=== PATIENT | male | born 1995 | race African-American/Black ===

== ENCOUNTER 2016-08-07 00:45 | Emergency (ER) | payer SELFPAY ==
[2016-08-07] MEDS ORDERED: TDAP ADULT 0.5 ML INJ (BOOSTRIX) IM ONE ×3 (00:52→01:35)
--- NOTE | 2016-08-07 00:54 | EDPHY ---
H & P Time Seen by Provider: 08/07/16 00:50 HPI/ROS: CCHIEF COMPLAINT: Right knee and right hand pain post interaction with police HISTORY OF PRESENT ILLNESS: 21-year-old male arrives via ambulance after he was allegedly running from the police, needed to be apprehended by the police and is complaining of right hand and right knee pain which he states was I results of his being apprehended by police. Tetanus is out-of-date. He denies: Peripheral paresthesia, weakness, numbness, chest pain, back pain, abdominal pain, nausea, vomiting. REVIEW OF SYSTEMS: A ten point review of systems was performed and is negative with the exception of the items mentioned in the HPI PAST MEDICAL/SURGICAL HISTORY: no relevant medical/surgical history SOCIAL HISTORY: denies alcohol use at time of incident PHYSICAL EXAM 1) GENERAL: Well-developed, well-nourished, alert and oriented. . 2) HEAD: Normocephalic, atraumatic 3) HEENT: Pupils equal, round, reactive to light bilaterally. 4) NECK: No cervical collar is on. Posterior cervical spine is nontender, no stepoff, no effusion. Full range of motion which does not elicit any midline cervical spine pain, no posterior midline tenderness, no step-off. 5) LUNGS: Clear to auscultation bilaterally, no wheezes, no rhonchi, no retractions. 6) HEART: Regular rate and rhythm, 7) ABDOMEN: No guarding, no rebound, no focal tenderness, no peritoneal signs, no signs of trauma, no ecchymosis 8) MUSCULOSKELETAL: Right upper extremity: Tender to palpation right 5th metacarpal with no deformity no angulation no signs of infection. Normal cascading of digit. Brisk capillary refill. Right lower extremity: Abrasion to the right anterior knee with tenderness. Patella midline. Reproducible pain with flexion of the knee. Distally and proximally nontender. Otherwise, Moving all extremities, no focal areas of tenderness, no obvious trauma. 9) BACK:No midline vertebral tenderness. 10) SKIN: No laceration. DIFFERENTIAL DIAGNOSIS: [ In no particular order including but not limited to fracture, sprain, dislocation Constitutional: Initial Vital Signs Temperature (C) 37.0 C 08/07/16 00:53 Heart Rate 91 08/07/16 00:53 Respiratory Rate 18 08/07/16 00:53 Blood Pressure 108/72 08/07/16 00:53 O2 Sat (%) 96 08/07/16 00:53 O2 Delivery Mode Room Air Allergies/Adverse Reactions: No Known Allergies Allergy (Unverified 08/07/16 00:55) Home Medications: Medication Instructions Recorded NK [No Known Home Meds] 08/07/16 MDM/Departure - MDM Imaging Results: Xray of the Right hand and right knee interpreted by myself: no definitive acute osseous abnormality Medications Given: Discontinued Medications Diphtheria/Tetanus/Acell Pertussis (Boostrix) 0.5 ml IM .ONCE ONE Stop: 08/07/16 00:53 Last Admin: 08/07/16 01:38 Dose: 0.5 ml - Depart Disposition: Home, Routine, Self-Care Clinical Impression: Abrasion, right knee, initial encounter Qualifiers: Encounter type: initial encounter Qualified Code(s): S80.211A - Abrasion, right knee, initial encounter Right knee injury Qualifiers: Encounter type: initial encounter Qualified Code(s): S89.91XA - Unspecified injury of right lower leg, initial encounter Injury of right hand Qualifiers: Encounter type: initial encounter Qualified Code(s): S69.91XA - Unspecified injury of right wrist, hand and finger(s), initial encounter Condition: Good Instructions: Knee Sprain (ED), Hand Sprain (ED), Abrasion (ED) Additional Instructions: Return to the ER immediately if you experience discoloration, have worsening pain, numbness, tingling, or any other symptoms that concern you. If you received x-rays in the emergency department today, be advised, that ligamentous , tendon, muscular, and other non-bony injury cannot be fully ruled out. Try to keep your affected extremity elevated above the level of your chest, and keep cold packs on the affected area, for the next 48 hours. Referrals: Faith Do MD [Medical Doctor] - 2-3 days, call for appt.
[2016-08-07 00:55] VITALS: RESP 18; O2SAT 96
[2016-08-07 02:00] VITALS: BP 110/70; PULSE 101; TEMP 98.8
== END 2016-08-07 01:59 | disposition home or self-care (01) ==
DX: S80.211A Abrasion, right knee, initial encounter (principal); S69.91XA Unspecified injury of right wrist, hand and finger(s), initial encounter; Z23 Encounter for immunization; W19.XXXA Unspecified fall, initial encounter